=== PATIENT | female | born 1950 | race Caucasian/White ===

== ENCOUNTER 2016-06-30 20:16 | Emergency (ER) | payer OTHER ==
[~2016-06-30] VITALS: Ht 175.3 cm; Wt 110.7 kg
[~2016-06-30 20:16] MED LIST: ATACAND HCT 321 EACH PO; LORTAB 5 MG/5001 TA1 PO; NOHOMEMEDICATIONS; PHENERGAN 25 MG25 M1 PO; PRILOSEC 20 MG20 MG PO; PROTONIX40 MG PO
[2016-06-30] MEDS ORDERED: XOPENEX HF1 UDINHALE IH (22:22)
[2016-06-30] MEDS ORDERED: TESSALON PERLE100 MG PO (22:22)
[2016-06-30 22:46] VITALS: BP 185/96
== END 2016-06-30 22:50 | disposition home or self-care (01) ==
LOC: ER 20:16
DX: J06.9 Acute upper respiratory infection, unspecified (principal); R05 Cough; Z72.0 Tobacco use; I10 Essential (primary) hypertension; F17.210 Nicotine dependence, cigarettes, uncomplicated; F10.99 Alcohol use, unspecified with unspecified alcohol-induced disorder; Z88.8 Allergy status to other drugs, medicaments and biological substances; Z88.2 Allergy status to sulfonamides; Z88.0 Allergy status to penicillin; Z88.1 Allergy status to other antibiotic agents; Z90.710 Acquired absence of both cervix and uterus; Z90.49 Acquired absence of other specified parts of digestive tract; Z98.890 Other specified postprocedural states

== ENCOUNTER 2017-11-29 21:07 | Emergency (ER) | payer OTHER ==
[~2017-11-29] VITALS: Ht 175.3 cm; Wt 114.8 kg
[~2017-11-29 21:07] MED LIST changes: +TESSALON PERLE100 MG PO; +XOPENEX HF1 UDINHALE IH
[2017-11-29] MEDS ORDERED: NORCO 5-325 TA1 EACH PO (22:22)
[2017-11-29 23:01] VITALS: BP 160/98
== END 2017-11-29 23:04 | disposition home or self-care (01) ==
LOC: ER 21:07
DX: S63.616A Unspecified sprain of right little finger, initial encounter (principal); W23.0XXA Caught, crushed, jammed, or pinched between moving objects, initial encounter; Y93.89 Activity, other specified; Y92.89 Other specified places as the place of occurrence of the external cause; Y99.8 Other external cause status; I10 Essential (primary) hypertension; Z90.49 Acquired absence of other specified parts of digestive tract; Z90.710 Acquired absence of both cervix and uterus; F17.210 Nicotine dependence, cigarettes, uncomplicated; Z88.0 Allergy status to penicillin; Z88.2 Allergy status to sulfonamides; Z88.8 Allergy status to other drugs, medicaments and biological substances

== ENCOUNTER 2020-12-20 18:13 | Emergency (ER) | payer OTHER ==
[~2020-12-20] VITALS: Ht 175.3 cm; Wt 108.0 kg
[~2020-12-20 18:13] MED LIST changes: +NORCO 5-325 TA1 EACH PO
[2020-12-20 21:30] VITALS: BP 157/90
== END 2020-12-20 21:30 | disposition home or self-care (01) ==
LOC: ER 18:13
DX: S90.852A Superficial foreign body, left foot, initial encounter (principal); S91.342A Puncture wound with foreign body, left foot, initial encounter; I10 Essential (primary) hypertension; F17.210 Nicotine dependence, cigarettes, uncomplicated; Z90.89 Acquired absence of other organs; Z90.710 Acquired absence of both cervix and uterus; Z90.49 Acquired absence of other specified parts of digestive tract; Z88.2 Allergy status to sulfonamides; Z88.0 Allergy status to penicillin; Z88.8 Allergy status to other drugs, medicaments and biological substances; Z91.09 Other allergy status, other than to drugs and biological substances; Z88.1 Allergy status to other antibiotic agents; W45.8XXA Other foreign body or object entering through skin, initial encounter; Y93.89 Activity, other specified; Y92.89 Other specified places as the place of occurrence of the external cause; Y99.8 Other external cause status